=== PATIENT | female | born 1965 ===

== ENCOUNTER 2021-08-28 05:55 | Day surgery (SDC) | payer OTHER ==
[~2021-08-28] VITALS: Ht 170.2 cm; Wt 75.7 kg
[~2021-08-28 05:55] MED LIST: SINGULAIR10 MG PO
[2021-08-28] MEDS ORDERED: PERCOCET 5-3251 EACH PO (11:24)
== END 2021-08-28 15:33 | disposition home or self-care (01) ==
LOC: CIR.AMB 05:55
PROVIDERS: ATTEND Surgery
DX: K64.2 Third degree hemorrhoids (principal); K62.89 Other specified diseases of anus and rectum; K62.5 Hemorrhage of anus and rectum; Z20.822 Contact with and (suspected) exposure to COVID-19; Z87.891 Personal history of nicotine dependence